=== PATIENT | female | born 1955 | race Caucasian/White ===

== ENCOUNTER 2021-08-04 21:14 | Emergency (ER) | payer MEDICARE ==
[~2021-08-04] VITALS: Ht 165.1 cm; Wt 54.0 kg
[~2021-08-04 21:14] MED LIST: AUGMENTIN875TAB PO; CIPROFLOXACN500 MG PO; ZITHROMAX250 MG PO
[2021-08-04] MEDS ORDERED: PEPCID20 MG PO (22:25)
[2021-08-04] MEDS ORDERED: MEDDOSEPAK PO (22:25)
[2021-08-04] MEDS ORDERED: DIPHENHYDRAM50 M2 PO (22:25)
[2021-08-04 23:11] VITALS: BP 103/50
[2021-08-04 23:13] VITALS: BP 103/50
== END 2021-08-04 23:15 | disposition home or self-care (01) ==
LOC: ED 21:14
DX: T78.40XA Allergy, unspecified, initial encounter (principal); X58.XXXA Exposure to other specified factors, initial encounter

== ENCOUNTER 2021-08-06 11:37 | Emergency (ER) | payer MEDICARE ==
[~2021-08-06] VITALS: Ht 165.1 cm; Wt 65.0 kg
[~2021-08-06 11:37] MED LIST changes: +DIPHENHYDRAM50 M2 PO; +MEDDOSEPAK PO; +PEPCID20 MG PO
[2021-08-06 11:56] VITALS: BP 127/61
[2021-08-06 12:02] VITALS: BP 137/62
[2021-08-06 12:16] VITALS: BP 122/43
[2021-08-06 12:30] VITALS: BP 126/57
[2021-08-06] MEDS ORDERED: PREDNISONE20 MG PO (12:43)
== END 2021-08-06 13:08 | disposition home or self-care (01) ==
LOC: ED 11:37
DX: T78.40XA Allergy, unspecified, initial encounter (principal); X58.XXXA Exposure to other specified factors, initial encounter